=== PATIENT | female | born 1970 ===

== ENCOUNTER 2018-11-06 07:09 | Inpatient (IN) | payer BC ==
[2018-11-03 09:00] VITALS: BMI 33.8
[2018-11-06] MEDS ORDERED: Lactated Ringer's 1,000 ML IV ONE ×4 (08:04→13:35)
--- NOTE | 2018-11-06 08:25 | CP.PCM.HP ---
History of Present Illness - History of Present Illness History of Present Illness: 48 y/o with hx of fibroids but now presenting with severe menorrhagia and pain for over 6months or so, passing very large clots and now hx of anemia for which PMD placed her on po iron. Pt had requested a CARLA Had been educated about other tx options but insist wants permanent solution to this problem. Present on Admission - Present on Admission Any Indicators Present on Admission: No Review of Systems - Constitutional Constitutional: As Per HPI - Breasts Breasts: As Per HPI - Genitourinary Genitourinary: As Per HPI - Reproductive: Female Reproductive:Female: As Per HPI - Menstruation Menstruation: As Per HPI - Endocrine Additional Comments: hx of thyroid disease - Hematologic/Lymphatic Hematologic: As Per HPI Past Patient History - Infectious Disease Hx of Infectious Diseases: None - Past Medical History & Family History Past Medical History?: Yes - Past Social History Smoking Status: Never Smoked Chewing Tobacco Use: No Drugs: Denies - CARDIAC Hx Cardiac Disorders: Yes Hx Hypercholesterolemia: Yes Hx Hypertension: Yes - PULMONARY Hx Respiratory Disorders: No - NEUROLOGICAL Hx Neurological Disorder: No - HEENT Hx HEENT Problems: No - RENAL Hx Chronic Kidney Disease: No - ENDOCRINE/METABOLIC Hx Endocrine Disorders: Yes Hx Hypothyroidism: Yes - HEMATOLOGICAL/ONCOLOGICAL Hx Blood Disorders: Yes Hx Anemia: Yes Hx Blood Transfusions: No - INTEGUMENTARY Hx Dermatological Problems: No - MUSCULOSKELETAL/RHEUMATOLOGICAL Hx Musculoskeletal Disorders: No - GASTROINTESTINAL Hx Gastrointestinal Disorders: No - GENITOURINARY/GYNECOLOGICAL Hx Genitourinary Disorders: No LMP:: irregular : 4 Para: 2 (C/S x2) Termination of : 2 - PSYCHIATRIC Hx Emotional Abuse: No Hx Physical Abuse: No - SURGICAL HISTORY Hx Surgeries: Yes Hx Section: Yes (x2) Other/Comment: top x2 - ANESTHESIA Hx Anesthesia: Yes Hx Anesthesia Reactions: No Hx Malignant Hyperthermia: No Has any member of the family had a problem w/ anesthesia?: No Meds Allergies/Adverse Reactions: Allergies Allergy/AdvReac Type Severity Reaction Status Date / Time No Known Allergies Allergy Verified 11/06/18 07:28 Physical Exam - Constitutional Appears: No Acute Distress - Head Exam Head Exam: ATRAUMATIC - Neck Exam Neck exam: Positive for: Full Rom - Respiratory Exam Respiratory Exam: NORMAL BREATHING PATTERN - Cardiovascular Exam Cardiovascular Exam: REGULAR RHYTHM - GI/Abdominal Exam GI & Abdominal Exam: Soft Additional comments: not distended old scar - Exam Bimanual exam: Uterine Enlargement Additional comments: uterus irregular - Neurological Exam Neurological exam: Alert, Oriented x3 - Psychiatric Exam Psychiatric exam: Normal Affect Results - Vital Signs Recent Vital Signs: Last Vital Signs Temp 98.1 F 11/06/18 07:36 Pulse 83 11/06/18 07:40 Resp 18 11/06/18 07:36 BP 149/87 11/06/18 07:36 Pulse Ox 98 11/06/18 07:36 Assessment & Plan - Assessment and Plan (Free Text) Assessment: fibroid uterus, severe menometrorrhagia pelvic rest Plan: for CARLA - Date & Time Date: 11/06/18 Time: 08:38
[2018-11-06] MEDS ORDERED: Midazolam 2 MG/2 ML VIAL ONE ×2 (09:48→09:57)
[2018-11-06] MEDS ORDERED: Propofol 10 mg/ml Inj (20 ML) ONE ×2 (09:48→09:56)
[2018-11-06] MEDS ORDERED: Lidocaine 2% MPF (5 ml) Inj ONE (09:48)
[2018-11-06] MEDS ORDERED: Succinylcholine Chloride 20 mg/ml Syr (5 ml) IV ONE (09:56)
[2018-11-06] MEDS ORDERED: cefOXitin Sodium 1 GM in Sodium Chloride 0.9% 100 ML IV ONE (10:00)
[2018-11-06] MEDS ORDERED: Phenylephrine 10 mg/ml Inj ONE (10:20)
[2018-11-06] MEDS ORDERED: Rocuronium 10 mg/ml (5 ml) ONE ×2 (10:20→11:53)
[2018-11-06] MEDS ORDERED: Bupivacaine 0.25% 300 ML in Sodium Chloride 0.9% 300 ML IS ONE (10:30)
[2018-11-06] MEDS ORDERED: Lidocaine 2% Inj (20ml) ONE (11:32)
[2018-11-06] MEDS ORDERED: Neostigmine 1:1000 (1 mg/ml) Inj ONE (12:33)
[2018-11-06] MEDS ORDERED: Cellulose Hemostat 2X3 Sheet TP ONE (13:00)
[2018-11-06] MEDS ORDERED: Lactated Ringer's 500 ML IV ONE (13:11)
[2018-11-06] MEDS ORDERED: Lidocaine 2% Inj (20ml) IJ ONE (13:15)
[2018-11-06] MEDS ORDERED: Lactated Ringer's 1,000 ML IV PRN (13:39)
[2018-11-06] MEDS ORDERED: HYDROmorphone 0.5 mg/0.5 ml ISec IVP PRN (13:39)
[2018-11-06] MEDS: cefOXitin Sodium 1 GM in Sodium Chloride 0.9% 100 ML IVPB SCH (18:00)
[2018-11-06] MEDS ORDERED: Lactated Ringer's 1,000 ML IV SCH (23:00)
[2018-11-07] MEDS: cefOXitin Sodium 1 GM in Sodium Chloride 0.9% 100 ML IVPB SCH ×2 (01:37→08:14)
[2018-11-07 05:39] LABS: HEMOGLOBIN 11.4 g/dL (12.0-16.0); MEAN CELL VOLUME 86.8 fl (81.0-99.0); MEAN CORPUSCULAR HEMOGLOBIN 29.3 pg (27.0-31.0); MEAN CORPUSCULAR HGB CONC 33.8 g/dL (33.0-37.0); RBC 3.89 Mil/uL (3.80-5.20)
[2018-11-07] MEDS: Levothyroxine 112 MCG TAB PO SCH (06:36)
[2018-11-07] MEDS ORDERED: Patient's Own Med (Valsartan/Hydrochlorothiazide [Valsartan-Hctz 160-12.5 Mg Tab] 1 TAB) PO SCH (09:00)
--- NOTE | 2018-11-07 18:04 | CP.PCM.PN ---
Subjective - Date & Time of Evaluation Date of Evaluation: 11/07/18 Time of Evaluation: 18:02 - Subjective Subjective: denies C/F, n/V c/o some incisional pain Voiding well No bm yet Objective - Vital Signs/Intake and Output Vital Signs (last 24 hours): Temp Pulse Resp BP Pulse Ox 98.2 F 85 18 152/85 H 98 11/07/18 08:00 11/07/18 08:12 11/07/18 08:00 11/07/18 08:12 11/07/18 08:00 Intake and Output: 11/07/18 11/07/18 06:59 18:59 Intake Total 1620 Output Total 1000 Balance 620 - Medications Medications: Current Medications Atorvastatin Calcium (Lipitor) 10 mg PO DAILY [facility] Last Admin: 11/07/18 08:13 Dose: 10 mg Hydrochlorothiazide (Microzide) 12.5 mg PO DAILY [facility] Last Admin: 11/07/18 08:13 Dose: 12.5 mg Ketorolac Tromethamine (Toradol) 30 mg IVP 0200,0800,1400,2000 [facility] Stop: 11/07/18 20:01 Last Admin: 11/07/18 13:58 Dose: 30 mg Levothyroxine Sodium (Synthroid) 112 mcg PO DAILY@0630 [facility] Last Admin: 11/07/18 06:36 Dose: 112 mcg Losartan Potassium (Cozaar) 100 mg PO DAILY [facility] Last Admin: 11/07/18 08:12 Dose: 100 mg - Labs Labs: 11/07/18 05:25 - Constitutional Appears: Well, No Acute Distress - Head Exam Head Exam: ATRAUMATIC - Neck Exam Neck Exam: Full ROM - Respiratory Exam Respiratory Exam: NORMAL BREATHING PATTERN - GI/Abdominal Exam GI & Abdominal Exam: Soft Additional comments: not distended dressing intact No rebound On Q pump in place - Extremities Exam Additional comments: no calf tenderness - Neurological Exam Neurological Exam: Alert, Awake, Oriented x3 - Psychiatric Exam Psychiatric exam: Normal Affect Assessment and Plan - Assessment and Plan (Free Text) Assessment: stable POD #1 Plan: increase diet as tolerated and CBC stable Continue po care
[2018-11-08] MEDS ORDERED: Oxycodone/Acetaminophen 5/325 mg Tab PO PRN (00:11)
[2018-11-08 06:30] VITALS: PULSE 74; TEMP 99.4
[2018-11-08] MEDS: Levothyroxine 112 MCG TAB PO SCH (07:12)
[2018-11-08 08:02] VITALS: BP 137/85
[2018-11-08 09:09] VITALS: RESP 20; O2SAT 96
--- NOTE | 2018-11-08 09:22 | CP.PCM.PN ---
Subjective - Date & Time of Evaluation Date of Evaluation: 11/08/18 Time of Evaluation: 09:20 - Subjective Subjective: Denies any SOB, chest or leg pains. Had BM this am. Denies C/F, voiding well. Objective - Vital Signs/Intake and Output Vital Signs (last 24 hours): Temp Pulse Resp BP Pulse Ox 99.4 F 74 20 137/85 96 11/08/18 08:00 11/08/18 08:00 11/08/18 08:00 11/08/18 08:00 11/08/18 08:00 - Medications Medications: Current Medications Atorvastatin Calcium (Lipitor) [address] [facility] Last Admin: 11/08/18 08:01 Dose: 10 mg Hydrochlorothiazide (Microzide) 12.[address] [facility] Last Admin: 11/08/18 08:02 Dose: 12.5 mg Ibuprofen (Motrin Tab) 600 mg PO Q6 PRN PRN Reason: Pain, Mild (1-3) Levothyroxine Sodium (Synthroid) 112 mcg PO DAILY@0630 [facility] Last Admin: 11/08/18 07:12 Dose: 112 mcg Losartan Potassium (Cozaar) [address] [facility] Last Admin: 11/08/18 08:00 Dose: 100 mg Oxycodone/Acetaminophen (Percocet 5/325 Mg Tab) 1 tab PO Q4 PRN PRN Reason: Pain, moderate (4-7) Stop: 11/11/18 00:12 - Labs Labs: 11/07/18 05:25 - Head Exam Head Exam: ATRAUMATIC - Neck Exam Neck Exam: Full ROM - Respiratory Exam Respiratory Exam: NORMAL BREATHING PATTERN - GI/Abdominal Exam Additional comments: soft ND, depressible No rebound. Incision clean and dry no suppt or discharge Bypro in place no sign of infection. - Extremities Exam Extremities Exam: Full ROM Additional comments: no leg edema or calf tenderness - Neurological Exam Neurological Exam: Alert, Awake, Oriented x3 - Psychiatric Exam Psychiatric exam: Normal Affect - Additional Findings Additional findings: sitting in chair at bed side in [facility].
--- NOTE | 2018-11-08 09:27 | CP.PCM.DIS ---
Provider - Provider Date of Admission: 11/06/18 14:05 Attending physician: Efrain Mckee MD Primary care physician: Marlen Garcia MD Time Spent in preparation of Discharge (in minutes): 5 Diagnosis - Discharge Diagnosis (1) Menorrhagia Status: Acute (2) Fibroid uterus Status: Acute (3) Pelvic pain Status: Acute Hospital Course - Lab Results Lab Results: Most Recent Lab Values WBC 10.0 K/uL (4.8-10.8) 11/07/18 05:25 RBC 3.89 Mil/uL (3.80-5.20) 11/07/18 05:25 Hgb 11.4 g/dL (12.0-16.0) L 11/07/18 05:25 Hct 33.8 % (34.0-47.0) L 11/07/18 05:25 MCV 86.8 fl (81.0-99.0) 11/07/18 05:25 MCH 29.3 pg (27.0-31.0) 11/07/18 05:25 MCHC 33.8 g/dL (33.0-37.0) 11/07/18 05:25 RDW 14.0 % (11.5-14.5) 11/07/18 05:25 Plt Count 299 K/uL (130-400) 11/07/18 05:25 Blood Type B POSITIVE 11/06/18 08:10 Blood Type Confirm B POSITIVE 11/06/18 09:28 Antibody Screen Negative 11/06/18 08:10 BBK History Checked No verified bt 11/06/18 08:10 - Hospital Course Hospital Course: underwent a CARLA-BSO without any complications PO course was not complicated Discharge Exam - Head Exam Head Exam: ATRAUMATIC - Neck Exam Neck exam: Full Rom - Respiratory Exam Respiratory Exam: NORMAL BREATHING PATTERN - GI/Abdominal Exam GI & Abdominal Exam: Soft Additional comments: ND, depressible Incision clean and dry no active bleeding or sing of infection Pearl in place - Extremities Exam Extremities exam: full ROM Additional comments: no leg edema or calf tenderness - Neurological Exam Neurological exam: Alert, Oriented x3 - Psychiatric Exam Psychiatric exam: Normal Affect Discharge Plan - Follow Up Plan Condition: GOOD Instructions: Hysterectomy, How to Wash Your Hands Properly Additional Instructions: pelvic and bed rest and appt for follow up office in 1 wk Referrals: Marlen Garcia MD [Primary Care Provider] -
--- NOTE | 2018-11-09 23:53 | OP ---
PROCEDURE DATE: 11/06/2018 PREOPERATIVE DIAGNOSES: 1. Severe menorrhagia. 2. Fibroid uterus. 3. Pelvic pain. POSTOPERATIVE DIAGNOSES: 1. Severe menorrhagia. 2. Fibroid uterus. 3. Pelvic pain. PROCEDURE PERFORMED: Total abdominal hysterectomy and bilateral salpingo-oophorectomy. SURGEON: Efrain Mckee MD BANQUET PREP COOK: Galdino Tao MD. Dr. Tao was present during the entire duration of the case. Manager Critical Care Unit is needed in positioning the patient, opening up the abdomen, removal of the uterus and closure of the abdomen. No surgical consultant is available at this time. ANESTHESIA USED: General endotracheal. ANESTHESIA ADMINISTERED BY: Jonah Cardona MD and Cuba Littlejohn MD ESTIMATED BLOOD LOSS: 400 mL. DRAINS USED: None. REPLACEMENTS USED: None. FINDINGS: 1. Uterus appears very enlarged and irregular to about 14 weeks' size with multiple fibroids. 2. Right ovary with a large cyst about 4 to 5 cm, appears clear. 3. Left ovary appeared grossly within normal limits to inspection bilaterally. 4. Total abdominal hysterectomy and bilateral salpingo-oophorectomy performed without any complications. DESCRIPTION OF PROCEDURE: The patient was taken to the operating room and placed on the operating table in a supine position. Following induction of general endotracheal anesthesia, Gonzalez catheter was then inserted into the bladder and was draining clear fluid. The abdomen and vaginal areas were draped and prepped in the usual sterile manner. After draping and prepping the patient, a Pfannenstiel incision was then made using sharp dissection along the edges of the previous incision. The incision was then extended down to the subcutaneous tissue using sharp dissection. Hemostasis was obtained by means of electrocoagulation. At this time, the fascia was then identified, was then entered in the midline. The incision on the fascia was then extended laterally in each direction. The rectus muscle was then identified, was then slit in the midline exposing the peritoneum. Peritoneal layer was then picked up using 2 Chelsea clamps, retracted superiorly, and then entered using sharp dissection. Incision was then extended superiorly and inferiorly under direct visualization. At this time, we then proceeded to identify the uterus, which appears to be enlarged and irregular and very bulky about 14 weeks' size with multiple fibroids. The bowel was the packed using moist lap pad and a self-retaining retractor was then placed in the incision in order to provide better visualization. The right round ligament was then identified, was then doubly clamped, cut, and ligated using 0 Vicryl suture. Same procedure was then performed in the contralateral side. At this time, the visceral peritoneum covering the low-transverse segment of the uterus was then excised, the bladder was then pushed down inferiorly. At this time, the left ovary and tube appeared grossly within normal limits to inspection and the left infundibulopelvic ligament was then identified, was then doubly clamped, cut, and ligated first using 0 Vicryl free tie and then 0 Vicryl suture. The same procedure was then performed on the contralateral side after identifying the right ovary, which appeared to have a large cyst. Following this, the bladder was then further pushed down using a finger rolling technique, and at this time, the right uterine artery was then identified, was then skeletonized and doubly clamped, cut, and ligated using 0 Vicryl suture. Same procedure was then performed on the contralateral side without any complication. A Bipin clamp was then placed on the right parametrial area. Dissection was ligated using 0 Vicryl suture. Same procedure was performed on the contralateral side without any complications. At this time, the uterus, tubes, and ovaries were then removed in order to provide better visualization because of a large amount of fibroids and bulkiness of the uterus. The uterus was then removed and the remaining cervical stump was then grasped using a single-tooth tenaculum and retracted superiorly. At this time, we then proceeded to further ligate both parametria on the right and left side after pushing down the bladder further inferiorly. At the level of the cervicovaginal junction, the vagina was then entered posteriorly and the cervix was then excised in toto. Vaginal cuff was then held using multiple Allis clamps and Uma clamps and right angle sutures were then placed using 0 Vicryl suture on the right side of the vaginal cuff area. The same procedure was then performed on the contralateral side without any complications. At this time, we then proceeded to the vaginal cuff using 0 Vicryl suture in a continuous interlocking manner. This was then performed in order to obtain full hemostasis. A sponge drenched with Betadine was then placed intravaginally to be removed after the surgery. At this time, the vaginal cuff was then closed using several interrupted [id number] 0 Vicryl sutures. Bleeding was contained, no bleeding noted. At this time, the pelvic cavity was then irrigated using saline solution. All operative areas checked, hemostatically secured, Surgicel and Interceed were placed in order to provide complete hemostasis. The vaginal cuff and the round ligament on the right side were then tied together in order to provide support for the vaginal cuff. Same procedure was performed in the contralateral side without any complications. All operative areas checked, hemostatically secured, and the peritoneum was then closed using 0 Vicryl suture in a continuous manner. Rectus muscle was also closed at the midline using 0 Vicryl suture in a continuous manner. Fascia was the identified, was then approximated using 1 Vicryl suture in a continuous manner. Fascia was then checked and found to be free of defect. Subcutaneous tissue was irrigated using saline solution. Before the fascia had been closed, a On-Q pump was then placed and exteriorized to a small needle size opening on the right mid quadrant. Catheter was then pumped and found to be patent. After closing the fascia, the subcutaneous tissue was then approximated using several interrupted 2-0 plain sutures. The skin was then approximated using skin anthony. Sponge from the vagina was then removed in toto. Sponge, needle, and instrument counts had been correct x3. The patient tolerated the procedure well. There were no complications. She was transferred to the recovery room in satisfactory conditions. Clear fluid noted to be present in the Gonzalez bag at this time. Efrain Mckee MD
== END 2018-11-08 10:50 | disposition home or self-care (01) | DRG 743 ==
LOC: H.OPSURG 07:09 → H.PEDS 14:05
PROVIDERS: ADMIT Specialist; ATTEND Specialist
PROC: 0UT70ZZ Resection of Bilateral Fallopian Tubes, Open Approach (ICD-10-PCS; 2018-11-06)
PROC: 0UT20ZZ Resection of Bilateral Ovaries, Open Approach (ICD-10-PCS; 2018-11-06)
PROC: 0UT90ZZ Resection of Uterus, Open Approach (ICD-10-PCS; principal; 2018-11-06 09:00)
DX: D25.9 Leiomyoma of uterus, unspecified (principal); E03.9 Hypothyroidism, unspecified; E78.00 Pure hypercholesterolemia, unspecified; I10 Essential (primary) hypertension; N92.0 Excessive and frequent menstruation with regular cycle; N92.1 Excessive and frequent menstruation with irregular cycle; Z98.891 History of uterine scar from previous surgery; D50.9 Iron deficiency anemia, unspecified